=== PATIENT | female | born 1980 | race Hispanic/Latino ===

== ENCOUNTER 2018-08-03 15:29 | Emergency (ER) | payer OTHER ==
[2018-08-03 15:38] VITALS: TEMP 97.6; O2SAT 100
--- NOTE | 2018-08-03 16:13 | ED PDOC ---
HPI: Female Pain Time Seen by Provider: 08/03/18 15:48 Chief Complaint (Nursing): Female Genitourinary Chief Complaint (Provider): Female Genitourinary History Per: Patient History/Exam Limitations: no limitations Onset/Duration Of Symptoms: Days (today) Current Symptoms Are (Timing): Still Present Quality Of Discomfort: "Pain" Associated Symptoms: Urinary Symptoms. denies: Fever, Chills, Back Pain, Chest Pain Additional Complaint(s): 38 year old female presents to the ED for possible UTI. Patient states that this morning she developed dysuria, frequency, urgency and hematuria. She states she spoke with an on demand doctor who called in Rx for x3 day course of antibiotics, but her pharmacy happened to be closed. She states she went to the ED hematuria worsened. She denies abdominal pain, back pain, incontinence, fever, chills or any other medical complaints. She states she feels anxious in hospitals, which she believes explains her rapid heart rate. Patient denies any chest pain or shortness of breath. PMD: none provided Past Medical History Reviewed: Historical Data, Nursing Documentation, Vital Signs Vital Signs: Last Vital Signs Temp 97.6 F 08/03/18 15:35 Pulse 120 H 08/03/18 15:35 Resp 19 08/03/18 15:35 BP 168/91 H 08/03/18 15:35 Pulse Ox 100 08/03/18 15:35 - Medical History PMH: Anxiety - Family History Family History: States: Unknown Family Hx - Home Medications Home Medications: Ambulatory Orders Medication Instructions Recorded Esomeprazole Magnesium [Nexium] 40 mg PO DAILY #28 ecc 06/30/14 Nitrofurantoin Macrocrystals 100 mg PO BID #13 cap 08/03/18 [Macrobid] - Allergies Allergies/Adverse Reactions: Allergies Allergy/AdvReac Type Severity Reaction Status Date / Time No Known Allergies Allergy Verified 08/03/18 15:38 Review of Systems ROS Statement: Except As Marked, All Systems Reviewed And Found Negative Constitutional: Negative for: Fever, Chills Cardiovascular: Negative for: Chest Pain Respiratory: Negative for: Shortness of Breath Gastrointestinal: Negative for: Abdominal Pain Genitourinary Female: Positive for: Dysuria, Frequency, Hematuria, Other (urgency). Negative for: Incontinence Musculoskeletal: Negative for: Back Pain Physical Exam - Reviewed Nursing Documentation Reviewed: Yes Vital Signs Reviewed: Yes - Physical Exam Appears: Positive for: No Acute Distress (calm and cooperative) Skin: Positive for: Normal Color, Warm, Dry Eye Exam: Positive for: EOMI, Normal appearance, PERRL Gastrointestinal/Abdominal: Positive for: Normal Exam, Soft. Negative for: Tenderness Back: Negative for: L CVA Tenderness, R CVA Tenderness Extremity: Positive for: Normal ROM (upper and lower) Neurologic/Psych: Positive for: Alert, Oriented (x3) - Laboratory Results Urine POC: Negative Urine dip results: Positive for: Leukocyte Esterase (large) - ECG O2 Sat by Pulse Oximetry: 100 (RA) Pulse Ox Interpretation: Normal Medical Decision Making Medical Decision Making: Time: 1556 Plan: --U preg --U dip --Macrobid 100 mg PO --Urine C&S Scribe Attestation: Documented by Jessica Cooley, acting as a scribe for Justin Bass PA-C Provider Scribe Attestation: All medical record entries made by the Scribe were at my direction and personally dictated by me. I have reviewed the chart and agree that the record accurately reflects my personal performance of the history, physical exam, medical decision making, and the department course for this patient. I have also personally directed, reviewed, and agree with the discharge instructions and disposition. Disposition - Clinical Impression Clinical Impression: UTI (urinary tract infection) - Patient ED Disposition Is Patient to be Admitted: No - Disposition Referrals: Sarah Gomez [Outside] Disposition: Routine/Home Disposition Time: 16:05 Condition: STABLE Additional Instructions: FOLLOW UP WITH YOUR DOCTOR FOR FURTHER EVALUATION RETURN TO ED IMMEDIATELY IF SYMPTOMS WORSEN LYUDMILA PEREZ, thank you for letting us take care of you today. Your provider was Katia Wilder MD and you were treated for FEMALE GENITOURINARY. The emergency medical care you received today was directed at your acute symptoms. If you were prescribed any medication, please fill it and take as directed. It may take several days for your symptoms to resolve. Return to the Emergency Department if your symptoms worsen, do not improve, or if you have any other problems. Please contact your doctor or call one of the physicians/clinics you have been referred to that are listed on the Patient Visit Information form that is included in your discharge packet. Bring any paperwork you were given at discharge with you along with any medications you are taking to your follow up visit. Our treatment cannot replace ongoing medical care by a primary care provider outside of the emergency department. Thank you for allowing the [facility] team to be part of your care today. If you had an X-Ray or CT scan: A Radiologist will review the ED reading if any change in treatment is needed we will contact you. If you had a blood, urine, or wound culture: It will take several days for the results, if any change in treatment is needed we will contact you. If you had an STI test: It will take 48 hours for the results. Please call after 1 week if you have not heard back. Prescriptions: Nitrofurantoin Macrocrystals [Macrobid] 100 mg PO BID #13 cap Instructions: Urinary Tract Infection, Adult (DC) Forms: [employer] (Amharic) Print Language: ARMENIAN
[2018-08-03 16:25] VITALS: BP 151/97; PULSE 104; RESP 18
== END 2018-08-03 16:28 | disposition home or self-care (01) ==
LOC: H.ER 15:29
DX: N39.0 Urinary tract infection, site not specified (principal); F41.9 Anxiety disorder, unspecified